=== PATIENT | female | born 1950 ===

== ENCOUNTER 2018-02-01 09:34 | Outpatient (REF) | payer MEDICARE, OTHER, SELFPAY ==
[2018-02-01 22:07] LABS: Hemoglobin A1C 5.8 % (4.5-6.2)
[2018-02-01 22:09] LABS: BUN 18 mg/dL (7-18); CREATININE 0.82 mg/dL (0.55-1.02); Calcium 9.1 mg/dL (8.5-10.1); Chloride 103 mmol/L (98-107); Cholesterol 261 mg/dL (50-200); Glucose 91 mg/dL (70-100); HDL Cholesterol 47 mg/dL (40-60); LDL CHOLESTEROL 185 mg/dL (<100); Potassium 4.1 mmol/L (3.5-5.1); Sodium 139 mmol/L (136-145); Triglyceride 159 mg/dL (30-150)
== END 2018-02-01 09:35 ==
LOC: NCHCN 09:34
PROVIDERS: Visit Provider Registered Nurse
DX: E78.5 Hyperlipidemia, unspecified (principal); R73.03 Prediabetes; I10 Essential (primary) hypertension
CPT/HCPCS: 80048; 80061; 83721; 83036

== ENCOUNTER 2019-02-07 08:18 | Outpatient (REF) | payer MEDICARE, OTHER, SELFPAY ==
[2019-02-07 21:38] LABS: Anion Gap 8.4 mmol/L (3-11); BUN 17 mg/dL (7-18); CO2 30.6 mmol/L (21.0-32.0); CREATININE 0.77 mg/dL (0.55-1.02); Calcium 9.3 mg/dL (8.5-10.1); Calculated LDL 174 mg/dL; Chloride 103 mmol/L (98-107); Cholesterol 259 mg/dL (50-200); Glucose 98 mg/dL (70-100); HDL Cholesterol 38 mg/dL (40-60); Potassium 4.6 mmol/L (3.5-5.1); Sodium 142 mmol/L (136-145); Triglyceride 239 mg/dL (30-150)
== END 2019-02-07 08:38 ==
LOC: NCHCN 08:18
PROVIDERS: PCP Registered Nurse; Visit Provider Registered Nurse
DX: I10 Essential (primary) hypertension (principal); E78.5 Hyperlipidemia, unspecified; R73.03 Prediabetes; I35.0 Nonrheumatic aortic (valve) stenosis
CPT/HCPCS: 80048; 80061

== ENCOUNTER 2020-02-04 08:56 | Outpatient (REF) | payer MEDICARE, OTHER, SELFPAY ==
[2020-02-04 21:40] LABS: Anion Gap 8.7 mmol/L (3-11); BUN 15 mg/dL (7-18); CO2 28.3 mmol/L (21.0-32.0); CREATININE 0.66 mg/dL (0.55-1.02); Calcium 9.7 mg/dL (8.5-10.1); Calculated LDL 197 mg/dL (<100); Chloride 106 mmol/L (98-107); Cholesterol 281 mg/dL (<200); Glucose 100 mg/dL (74-106); HDL Cholesterol 40 mg/dL (40-60); Potassium 4.3 mmol/L (3.5-5.1); Sodium 143 mmol/L (136-145); TSH 1.47 uIU/mL (0.36-3.74); Triglyceride 223 mg/dL (<150)
[2020-02-06 16:59] LABS: Hepatitis C Ab w Rflx HCV PCR Negative (Negative)
== END 2020-02-04 09:16 ==
LOC: NCHCN 08:56
PROVIDERS: PCP Registered Nurse; Visit Provider Registered Nurse
DX: I10 Essential (primary) hypertension (principal); E78.5 Hyperlipidemia, unspecified; Z11.59 Encounter for screening for other viral diseases
CPT/HCPCS: 80048; 80061; 86803; 84443